=== PATIENT | male | born 1995 | race Hispanic/Latino ===

== ENCOUNTER 2023-08-09 14:09 | Observation (INO) | payer MEDICAID, SELFPAY ==
[2023-08-09] VITALS (26 sets, daily range): BP systolic 119–134; BP diastolic 71–91; PULSE 68–133; RESP 15–31; TEMP 36.7–38.2; O2SAT 97–100
--- NOTE | ~2023-08-09 | CT_ITS ---
EXAMINATION: CT brain wo con DATE: 08/09/2023 17:32 INDICATION: Headache. Fever. TECHNIQUE: Computed tomography (CT) of the head was performed without intravenous contrast. The mA wa s adjusted according to patient size. Iterative reconstruction technique was employed. The dose-lengt h product was 605.33 mGy-cm. COMPARISON: None FINDINGS: There is no intracranial hemorrhage, acute infarction, or abnormal intracranial mass lesion . The ventricles are normal in size. There is mild mucosal thickening in the paranasal sinuses. The m astoid air cells are normal. The orbits are normal. IMPRESSION: 1. Normal brain. Reviewed, dictated and finalized at location E. IMPRESSION: 1. Normal brain.
--- NOTE | ~2023-08-09 | XR_ITS ---
EXAMINATION: XR chest 2V DATE: 08/09/2023 15:21 INDICATION: Fever. TECHNIQUE: Frontal and lateral views of the chest were obtained. COMPARISON: None. FINDINGS: There is no pneumonia, pleural effusion, or pneumothorax. The heart size is normal. IMPRESSION: 1. No acute cardiopulmonary disease. Reviewed, dictated and finalized at location E.
--- NOTE | ~2023-08-09 | CT_ITS ---
EXAMINATION: CT chest abdomen pelvis wo con DATE: 08/10/2023 08:31 INDICATION: Fever of unknown origin. TECHNIQUE: Computed tomography (CT) of the chest, abdomen, and pelvis was performed without intraveno us contrast. Automated exposure control and iterative reconstruction technique were employed. The dos e-length product was 388.57 mGy-cm. COMPARISON: None FINDINGS: CHEST CT: Mild linear discoid atelectasis in the posterior aspect of the bilateral upper and bilateral lower lo bes. Tiny bilateral posterior layering pleural effusions. No pneumonia, pulmonary edema or pneumothor ax. Heart size is normal. Minimal pericardial effusion. Thoracic aorta is normal. No pathologically e nlarged thoracic lymphadenopathy. Bones are unremarkable. ABDOMEN/PELVIS CT: Diffuse hepatic steatosis. Splenomegaly measuring 15.0 cm in craniocaudal length. Gallbladder, pancre as, bilateral adrenal glands and kidneys are normal. Bowels including the appendix are normal. Bladde r is normal. No free intraperitoneal gas or fluid. No pathologically enlarged abdominal or pelvic lym phadenopathy. Minimal lumbar levocurvature. IMPRESSION: 1. Tiny bilateral pleural effusions and minimal pericardial effusion. No other acute cardiopulmonary disease. 2. Diffuse hepatic steatosis and nonspecific mild splenomegaly. No acute intra-abdominal/pelvic proce ss. Reviewed, dictated and finalized at location A. IMPRESSION: 1. Tiny bilateral pleural effusions and minimal pericardial effusion. No other acute cardiopulmonary disease. 2. Diffuse hepatic steatosis and nonspecific mild splenomegaly. No acute intra- abdominal/pelvic process.
--- NOTE | 2023-08-09 14:25 | ECG_ITS ---
Measurements Intervals [place] Rate: 112 P: 37 TN: 157 QRS: 31 QRSD: 94 T: 29 QT: 284 QTc: 388 Interpretive Statements SINUS TACHYCARDIA INCOMPLETE RIGHT BUNDLE BRANCH BLOCK [90+ ms QRS DURATION, TERMINAL R IN V1/V2, 40+ ms S IN I/aVL/V4/V5/V6] ABNORMAL RHYTHM ECG NO PREVIOUS ECG AVAILABLE FOR COMPARISON Electronically Signed On 08-10-2023 14:10:15 CDT by Shelton Recinos M.D.
[2023-08-09 14:52] LABS: Basophils Percent Auto 0.8 % (0.2-1.2); Hematocrit 31.6 % (42.0-52.0); Hemoglobin 10.8 g/dL (14.0-18.0); Immature Platelet Fraction Pct 5.3 % (0.9-11.2); Lymphocytes Absolute Auto 0.98 K/mm3 (0.9-3.2); Mean Corpuscular HGB Conc 34.2 g/dl (32-36); Mean Corpuscular Hemoglobin 29.8 pg (26-34); Mean Corpuscular Volume 87.3 fl (80-100); Mean Platelet Volume 9.9 fl (7.4-10.4); Monocytes Absolute Auto 0.2 K/mm3 (0.1-0.6); Neutrophils Absolute Auto 0.1 K/mm3 (1.3-6.7); Neutrophils Percent Auto 4.2 % (45.5-73.1); Platelet Count Result 379 k/mm3 (150-375); Red Blood Count 3.62 M/mm3 (4.6-6.20); Red Cell Distribution Width 12.9 % (11.5-14.5)
[2023-08-09 15:01] LABS: Alanine Aminotransferase 107 U/L (6-50); Albumin Level 3.8 g/dL (3.5-5.1); Alkaline Phosphatase 188 U/L (38-126); Anion Gap 8 mmol/L (8-16); Aspartate Amino Transferase 49 U/L (17-59); Bilirubin,Total 0.9 mg/dL (0.2-1.3); Blood Urea Nitrogen 17 mg/dL (9-20); Calcium 8.5 mg/dL (8.4-10.2); Carbon Dioxide 25 mmol/L (22-30); Chloride 100 mmol/L (98-107); Estimated CRCL calculation 97 ml/min; Estimated Glomerular Filt Rate > 60; Glucose 141 mg/dL (65-110); Potassium 3.9 mmol/L (3.4-5.0); Sodium 133 mmol/L (137-145)
[2023-08-09 15:06] LABS: White Blood Count 1.2 K/mm3 (4.5-10.0)
[2023-08-09 15:09] LABS: Atypical Lymphocytes Present; Schistocytes None Seen (NORMAL)
[2023-08-09 15:26] LABS: Influenza A QL RT-PCR Negative (Negative); Influenza B QL RT-PCR Negative (Negative); SARS-CoV-2 RNA PCR Negative (Negative)
[2023-08-09] MEDS: ACETAMINOPHEN 500 MG TABLET 1000 MG PO (18:11)
[2023-08-09] MEDS: SODIUM CHLORIDE 0.9% IV 1,000 ML 999 ML IV CONT (18:12)
[2023-08-09] MEDS: Please add drug allergy info to patient profile. 1 EACH XX (18:12)
[2023-08-09] MEDS: CEFEPIME 2 GM/NS 50 ML 2 GM/50 ML BAG IVPB (18:13)
[2023-08-09 18:34] LABS: Lactic Acid Reflex 0.9 mmol/L (0.7-2.0)
[2023-08-09 18:41] LABS: INR 1.1; Partial Thromboplastin Time 40.4 SECONDS (22.3-36.8); Prothrombin Time 14.3 Seconds (11.1-14.7)
--- NOTE | 2023-08-09 19:03 | ED.FEVER ---
HPI - Fever General Chief Complaint: Fever <Ozzie Montgomery MD - Last Filed: 08/09/23 20:01> Stated Complaint: jose/fever x 4 weeks, UC referred <Ozzie Montgomery MD - Last Filed: 08/09/23 20:01> Time Seen by Provider: 08/09/23 16:59 <Ozzie Montgomery MD - Last Filed: 08/09/23 20:01> History of Present Illness HPI Narrative: This is a 28M with no significant past medical history who presents to the emergency department complaining of fever for the past 4 weeks. He denies any recent travel or known sick contacts. He denies cough, vomiting, rash, abdominal pain, dysuria, weakness or numbness. He has had some intermittent headaches without focal weakness or vision changes. He works in a restaurant. <Ozzie Montgomery MD - Last Filed: 08/09/23 20:01> Related Data Home Medications: Home Medications Medication Instructions Recorded Confirmed No Home Medications 08/10/23 08/10/23 <Ozzie Montgomery MD - Last Filed: 08/09/23 20:01> Allergies/Adverse Reactions: Allergies Allergy/AdvReac Type Severity Reaction Status Date / Time No Known Allergies Allergy Verified 08/09/23 18:11 <Ozzie Montgomery MD - Last Filed: 08/09/23 20:01> Review of Systems Review of Systems: CONSTITUTIONAL: Fever Denies chills, or sweats. EYES: Denies visual changes, redness, or discharge. ENT: Denies rhinorrhea, congestion, sore throat, or otalgia. CARDIOVASCULAR: Denies chest pain, palpitations, or edema. RESPIRATORY: Denies cough or dyspnea. GASTROINTESTINAL: Denies abdominal pain, nausea, vomiting, or diarrhea. GENITOURINARY: Denies dysuria or hematuria. SKIN: Denies rash or itching. MUSCULOSKELETAL: Denies back pain, joint pain, or myalgia. NEUROLOGIC: Denies headache, numbness, dizziness, or weakness. PSYCHIATRIC: Denies anxiety or depression. <Ozzie Montgomery MD - Last Filed: 08/09/23 20:01> [facility] Past Medical History Medical History: Medical History Torsion, testicular <Ozzie Montgomery MD - Last Filed: 08/09/23 20:01> Surgical History Surgical History: Surgical History Status post orchiopexy <Ozzie Montgomery MD - Last Filed: 08/09/23 20:01> Family History Family History: Family History (Updated 08/10/23 @ 02:28 by Lizette Calvin RN) Other Unknown family medical history <Ozzie Montgomery MD - Last Filed: 08/09/23 20:01> Social History Social History: Social History Smoking status: Never smoker Alcohol intake: current Drinks per week: 1 Substance use: never Lack of Transportation: No Lack of Food: Never True Current Housing: I Have Housing Concerned About Future Housing: No Difficulty Paying Gas/Electric Bills: YES Difficulty Paying for Meds: YES Currently Unemployed: No Education: High School Diploma/GED Difficulty w/ Childcare or Family Care: No Spiritual care concerns: No <Ozzie Montgomery MD - Last Filed: 08/09/23 20:01> Exam Narrative: GENERAL: Well-developed, well-nourished, in no acute distress HEAD: Normocephalic, atraumatic EYES: PERRLA and EOMI ENT: Nares clear, no rhinorrhea or epistaxis. Mucous membranes moist. Oropharynx without tonsillar hypertrophy or exudate or other lesions. Bilateral TMs intact and not bulging NECK: Supple. No adenopathy or masses. No carotid bruits or JVD. Head impulse test negative CHEST: Clear to auscultation. No respiratory distress. No wheezes, rales or rhonchi. HEART: Regular rate and rhythm. No murmur heard. normal peripheral pulses. ABDOMEN: Soft, nontender, nondistended, normoactive bowel sounds. : Normal male external genitalia, circumcised, no erythema or crepitus EXTREMITIES: Normal range of motion. No edema. SKIN: Warm, dry, no rash. NEURO: No focal deficits. Deisi
[2023-08-09 19:09] LABS: CRP 26.9 mg/dL (<1.0)
--- NOTE | 2023-08-09 19:15 | PC.NURSE ---
Assumed care of pt from MARICARMEN Booker at this time. Pt resting in bed. This RN provided pt w sandwich and chips.
[2023-08-09 19:30] LABS: Appearance Urine Clear (Clear); Bilirubin Urine Negative (Negative); Blood Urine Negative (Negative); Color Urine Yellow (Yellow); Glucose Urine UA Negative (Negative); Ketones Urine Negative (Negative); Leukocyte Esterase Ur Negative LEU/UL (Negative); Nitrate Urine Negative (Negative); Protein Urine 2+ mg/dL (Negative); Specific Grav Ur 1.015 (1.001-1.035); pH Urine 8.5 (5.0-9.0)
[2023-08-09 19:39] LABS: Bacteria Urine None Seen /hpf; Hyaline Casts Urine Present /lpf; Need Manual Microscopic Reviewed; RBC Urine 0-2 /hpf (0-2); Squamous Epithelial Cell Urine None seen /hpf (Few); WBC Urine 0-5 /hpf
[2023-08-09 19:40] LABS: Add Urine Microscopic? YES
[2023-08-09 19:57] LABS: RSV RNA, RT-PCR Negative (Negative)
[2023-08-09 23:41] LABS: HIV 1/2 Ab P24 Ag 40.5
[2023-08-09 23:42] LABS: HIV 1/2 Ab P24 Ag Result Reactive (Negative)
[2023-08-09 23:46] LABS: HIVc Retest 1 40.5; HIVc Retest 2 40.4
[2023-08-10] VITALS (15 sets, daily range): BP systolic 103–152; BP diastolic 68–98; PULSE 52–91; RESP 18–26; TEMP 36.1–36.6; O2SAT 99–100; BMI 22.3
[2023-08-10 00:13] LABS: Monoscreen Negative (Negative); Positive Monotest Control Positive (Positive)
[2023-08-10 00:14] LABS: Negative Monotest Control Negative (Negative)
[2023-08-10] MEDS: Please add drug allergy info to patient profile. 1 EACH XX (00:19)
--- NOTE | 2023-08-10 02:02 | ADMGEN ---
This patient, Chico Ngo, was admitted to Medical Room 246-01. Patient/family oriented to hospital policies and general routines including ID bracelet, bed and alarms, visiting hours, pain management, procedures, bathroom and other care routines, personal items, smoking policy, room service/diet, and visiting hours. Information on how to activate the Rapid Response Team has been discussed. Patient/Family are encouraged to report perceived risks to care and to ask questions if they do not understand what they are told or what they should do.
[2023-08-10] MEDS: CEFEPIME 2 GM/NS 50 ML 2 GM/50 ML BAG IVPB ×2 (08:51→17:42)
--- NOTE | 2023-08-10 11:04 | PM.IMHP ---
H&P: HPI History of Present Illness Date/Time: 08/10/23 11:04 Chief Complaint: This is a 28M with no significant past medical history who presents to the emergency department complaining of fever for the past 4 weeks. He denies any recent travel or known sick contacts. He denies cough, vomiting, rash, abdominal pain, dysuria, weakness or numbness. He has had some intermittent headaches without focal weakness or vision changes. 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 EYES: Denies visual changes, redness, or discharge. ENT: Denies rhinorrhea, congestion, sore throat, or otalgia. CARDIOVASCULAR: Denies chest pain, palpitations, or edema. RESPIRATORY: Denies cough or dyspnea. GASTROINTESTINAL: Denies abdominal pain, nausea, vomiting, or diarrhea. GENITOURINARY: Denies dysuria or hematuria. SKIN: Denies rash or itching. MUSCULOSKELETAL: Denies back pain, joint pain, or myalgia. NEUROLOGIC: Denies headache, numbness, dizziness, or weakness. PSYCHIATRIC: Denies anxiety or depression. [facility] Past Medical History Medical History Torsion, testicular Surgical History Surgical History Status post orchiopexy Family History Family History Other Unknown family medical history Social History Social History Smoking status: Never smoker Alcohol intake: current Drinks per week: 1 Substance use: never Lack of Transportation: No Lack of Food: Never True Current Housing: I Have Housing Concerned About Future Housing: No Difficulty Paying Gas/Electric Bills: YES Difficulty Paying for Meds: YES Currently Unemployed: No Education: High School Diploma/GED Difficulty w/ Childcare or Family Care: No Spiritual care concerns: No Meds Home Medications and Allergies Home Medications Medication Instructions Recorded Confirmed Type No Home Medications 08/10/23 08/10/23 History Allergies Allergy/AdvReac Type Severity Reaction Status Date / Time No Known Allergies Allergy Verified 08/09/23 18:11 Vital Signs Vital Signs - 24 hr 08/09/23 14:23 08/09/23 16:17 08/09/23 16:33 Temperature 98.1 F 100.8 F H Pulse Rate 119 H 120 H 119 H Respiratory Rate 18 20 24 H Blood Pressure 128/72 119/71 134/82 Pulse Oximetry 99 100 100 Oxygen Delivery Room Air 08/09/23 16:47 08/09/23 17:01 08/09/23 17:17 Temperature Pulse Rate 120 H Respiratory Rate 25 H Blood Pressure Pulse Oximetry 100 100 98 Oxygen Delivery 08/09/23 17:34 08/09/23 17:47 08/09/23 18:00 Temperature Pulse Rate 126 H 133 H Respiratory Rate 15 22 H Blood Pressure Pulse Oximetry 98 99 97 Oxygen Delivery 08/09/23 18:16 08/09/23 21:49 08/09/23 19:00 Temperature Pulse Rate 127 H 92 111 H Respiratory Rate 19 23 H 31 H Blood Pressure 132/79 134/84 Pulse Oximetry 100 Oxygen Delivery 08/09/23 19:15 08/09/23 19:46 08/09/23 20:00 Temperature Pulse Rate 105 H 102 H 99 Respiratory Rate 31 H 20 28 H Blood Pressure 127/79 129/78 130/80 Pulse Oximetry 99 100 99 Oxygen Delivery 08/09/23 20:15 08/09/23 20:30 08/09/23 21:00 Temperature Pulse Rate 101 H 103 H 91 Respiratory Rate 29 H 25 H 23 H Blood Pressure 130/91 H 130/87 134/79 Pulse Oximetry 99 99 99 Oxygen Delivery 08/09/23 21:45 08/09/23 22:00 08/09/23 22:15 Temperature Pulse Rate 85 77 69 Respiratory Rate 26 H 26 H 24 H Blood Pressure 132/79 132/78 123/78 Pulse Oximetry 99 99 99 Oxygen Delivery 08/09/23 22:30 08/09/23 23:15 08/09/23 23:30 Temperature Pulse Rate 68 87 78 Respiratory Rate 23 H 16 20 Blood Pressure 131/75 134/82 132/77 Pulse Oximetry 99 100 100 Oxygen Delivery 08/09/23 23:45
[2023-08-11] VITALS (7 sets, daily range): BP systolic 111–113; BP diastolic 50–64; PULSE 58–102; RESP 16–21; TEMP 35.3–36.7; O2SAT 99–100
[2023-08-11] MEDS: CEFEPIME 2 GM/NS 50 ML 2 GM/50 ML BAG IVPB ×2 (00:19→09:14)
[2023-08-11 05:56] LABS: Basophils Percent Auto 0.7 % (0.2-1.2); Hematocrit 33.7 % (42.0-52.0); Hemoglobin 11.1 g/dL (14.0-18.0); Lymphocytes Percent Auto 91.5 % (18.3-44.2); Mean Corpuscular HGB Conc 32.9 g/dl (32-36); Mean Corpuscular Hemoglobin 29.2 pg (26-34); Mean Corpuscular Volume 88.7 fl (80-100); Mean Platelet Volume 10.1 fl (7.4-10.4); Monocytes Absolute Auto 0.1 K/mm3 (0.1-0.6); Monocytes Percent Auto 5.9 % (2.6-8.5); Neutrophils Percent Auto 1.9 % (45.5-73.1); Platelet Count Result 400 k/mm3 (150-375); Red Cell Distribution Width 13.1 % (11.5-14.5)
[2023-08-11 06:11] LABS: Anion Gap 8 mmol/L (8-16); Blood Urea Nitrogen 16 mg/dL (9-20); Calcium 8.9 mg/dL (8.4-10.2); Carbon Dioxide 25 mmol/L (22-30); Chloride 104 mmol/L (98-107); Estimated CRCL calculation 114 ml/min; Estimated Glomerular Filt Rate > 60; Glucose 111 mg/dL (65-110); Potassium 4.4 mmol/L (3.4-5.0); Sodium 137 mmol/L (137-145)
[2023-08-11 06:23] LABS: Large Platelets Present; Platelet Estimate Increased (Adequate); White Blood Count 1.5 K/mm3 (4.5-10.0)
[2023-08-11 06:24] LABS: Atypical Lymphocytes Present; Hypochromasia 1+ (NORMAL); Schistocytes None Seen (NORMAL)
[2023-08-11] MEDS: ACETAMINOPHEN 325 MG TABLET 650 MG PO (11:07)
--- NOTE | 2023-08-11 11:51 | PM.IMPN ---
Progress Note: A&P Assessment and Plan (1) Febrile neutropenia: Code(s): D70.9 - Neutropenia, unspecified; R50.81 - Fever presenting with conditions classified elsewhere Status: Acute (2) HIV (human immunodeficiency virus infection): Code(s): B20 - Human immunodeficiency virus [HIV] disease Status: Acute Assessment and Plan: Await studies will contact ID at [place] and see if transfer is needed Subjective Date/time seen: 08/11/23 11:51 Interval history: no complaints Review of Systems Review of Systems: CONSTITUTIONAL: Fever Denies chills, or sweats. EYES: Denies visual changes, redness, or discharge. ENT: Denies rhinorrhea, congestion, sore throat, or otalgia. CARDIOVASCULAR: Denies chest pain, palpitations, or edema. RESPIRATORY: Denies cough or dyspnea. GASTROINTESTINAL: Denies abdominal pain, nausea, vomiting, or diarrhea. GENITOURINARY: Denies dysuria or hematuria. SKIN: Denies rash or itching. MUSCULOSKELETAL: Denies back pain, joint pain, or myalgia. NEUROLOGIC: Denies headache, numbness, dizziness, or weakness. PSYCHIATRIC: Denies anxiety or depression. Exam Narrative: GENERAL: Well-developed, well-nourished, in no acute distress HEAD: Normocephalic, atraumatic EYES: PERRLA and EOMI ENT: Nares clear, no rhinorrhea or epistaxis. Mucous membranes moist. Oropharynx without tonsillar hypertrophy or exudate or other lesions. Bilateral TMs intact and not bulging NECK: Supple. No adenopathy or masses. No carotid bruits or JVD. Head impulse test negative CHEST: Clear to auscultation. No respiratory distress. No wheezes, rales or rhonchi. HEART: Regular rate and rhythm. No murmur heard. normal peripheral pulses. ABDOMEN: Soft, nontender, nondistended, normoactive bowel sounds. : Normal male external genitalia, circumcised, no erythema or crepitus EXTREMITIES: Normal range of motion. No edema. SKIN: Warm, dry, no rash. NEURO: No focal deficits. Alert and oriented x3. PSYCH: Normal mood and affect. Objective Data Vital Signs Vital Signs: Vital Signs - 24 hr 08/10/23 12:00 08/10/23 14:00 08/10/23 16:00 Temperature 97.7 F Pulse Rate 85 78 59 L Respiratory Rate 18 Blood Pressure 139/77 Pulse Oximetry 100 Oxygen Delivery 08/10/23 20:00 08/10/23 20:00 08/10/23 22:00 Temperature 97.0 F L Pulse Rate 80 59 L 75 Respiratory Rate 18 20 Blood Pressure 152/94 H Pulse Oximetry 100 99 Oxygen Delivery Room Air 08/11/23 00:00 08/11/23 04:00 08/11/23 06:00 Temperature 98.0 F Pulse Rate 69 58 L 83 Respiratory Rate 21 H Blood Pressure 113/64 Pulse Oximetry 100 Oxygen Delivery 08/11/23 09:14 08/11/23 08:00 Temperature Pulse Rate 83 Respiratory Rate Blood Pressure Pulse Oximetry Oxygen Delivery Room Air Intake/Output Intake/Output: Intake & Output 08/08/23 08/09/23 08/10/23 08/11/23 23:59 23:59 23:59 23:59 Intake Total 1050 1060 1010 Balance 1050 1060 1010 Meds/Results Medications: Active Medications Generic Name Dose Route Start Last Admin Trade Name Freq PRN Reason Stop Dose Admin Acetaminophen 650 mg 08/11/23 10:43 08/11/23 11:07 Acetaminophen 325 Mg Tablet PO 650 mg Q4H PRN Administration Headache Cefepime HCl 2 gm in 50 mls @ 100 mls/hr 08/10/23 17:00 08/11/23 09:14 Maxipime 2 Gm/Ns 50 Ml IVPB 100 mls/hr Q8H KADI Administration Radiology Results: ITS Impressions Chest X-Ray 08/09/23 15:22 IMPRESSION: 1. No acute cardiopulmonary disease. Head CT 08/09/23 17:34 IMPRESSION: 1. Normal brain. Chest/Abdomen/Pelvis CT 08/10/23 09:19 IMPRESSION: 1. Tiny bilateral pleural effusions and minimal pericardial effusion. No other acute cardiopulmonary disease. 2. Diffuse hepatic steatosis and nonspecific mild splenomegaly. No acute intra-abdominal/pelvic process. Labs Labs: Laboratory Results - last 24 hr 08/11/23 05:36 WBC 1.5
[2023-08-13 15:33] LABS: Absolute CD4 Count 83 cells/uL (490-1740); Lymphocytes, Absolute 577 cells/uL (850-3900); Percent CD4 Cells 14 % (30-61)
[2023-08-13 16:37] LABS: HIV 1 2 Ag Ab 4th Gen w Rflxs Reactive (Nonreactive); HIV 1 Ab Chg Test Yes; HIV 1 Antibody Positive (Negative); HIV 2 Ab Chg Test Yes; HIV 2 Antibody Negative (Negative)
[2023-08-17 10:20] LABS: Blastomyces Antibody Negative; Candida Antibody Negative; Coccidioides Antibody Negative; Histoplasma Antibody Negative
[2023-08-18 00:47] LABS: HIV Genotype DETECTED
--- NOTE | 2023-09-05 12:01 | P.TS_ITS ---
Transfer Discharge Sum: Prov Provider Date of admission: 08/10/23 00:46 Primary care physician: CULIN[facility] SPECIALIST PHYSICIAN Admitting clinician: Humberto Parry MD Consults: 08/11/23 Consult to Physician Routine Comment: Spoke w/ [id number] 08/11 (, [place]) Consulting Provider: Venkat Saini train caller/MD group to consult: Oncology Reason for consultation: WBC 1.5 today. 1.2 yesterday Has provider been notified: Yes DS: Admitting Diagnosis Discharge Date 08/11/23 Admitting Diagnosis HIV, fever DS: Discharge Diagnosis Discharge Diagnosis (1) Febrile neutropenia: Code(s): D70.9 - Neutropenia, unspecified; R50.81 - Fever presenting with conditions classified elsewhere Status: Acute (2) HIV (human immunodeficiency virus infection): Code(s): B20 - Human immunodeficiency virus [HIV] disease Status: Acute Assessment and Plan: Await studies will contact ID at [place] and see if transfer is needed Transfer Discharge Sum: Med Medications Active and Home Medications: Home Medications No Home Medications 08/10/23 [History Confirmed 08/10/23] Transfer Discharge Sum: Hosp Hospital Course Hospital course: Chico Ngo is a 28 year old male admittede for acute hiv infedtion, transferred to tertiary care center for further evaluation and management. All labs and king pending. Time Spent with Patient Time attestation: Total time spent providing and/or coordinating transfer services: Exam Narrative: GENERAL: Well-developed, well-nourished, in no acute distress HEAD: Normocephalic, atraumatic EYES: PERRLA and EOMI ENT: Nares clear, no rhinorrhea or epistaxis. Mucous membranes moist. Oropharynx without tonsillar hypertrophy or exudate or other lesions. Bilateral TMs intact and not bulging NECK: Supple. No adenopathy or masses. No carotid bruits or JVD. Head impulse test negative CHEST: Clear to auscultation. No respiratory distress. No wheezes, rales or rhonchi. HEART: Regular rate and rhythm. No murmur heard. normal peripheral pulses. ABDOMEN: Soft, nontender, nondistended, normoactive bowel sounds. : Normal male external genitalia, circumcised, no erythema or crepitus EXTREMITIES: Normal range of motion. No edema. SKIN: Warm, dry, no rash. NEURO: No focal deficits. Alert and oriented x3. PSYCH: Normal mood and affect. DS: Data Data Completed and Pending Labs on day of discharge: Preliminary micro results at discharge 08/10/23 15:40 Fungal Culture - Preliminary Blood
== END 2023-08-11 17:45 | disposition short-term general hospital (02) ==
LOC: ANHED 23:36 → ANH2MED 08-10 02:36
PROVIDERS: Preventive Medicine Aerospace Medicine; Admitting Provider Chiropractor; Emergency Provider Emergency Medicine; Visit Provider Chiropractor
DX: D70.9 Neutropenia, unspecified (principal); R50.81 Fever presenting with conditions classified elsewhere; B20 Human immunodeficiency virus [HIV] disease; B95.7 Other staphylococcus as the cause of diseases classified elsewhere; Z11.4 Encounter for screening for human immunodeficiency virus [HIV]; R94.31 Abnormal electrocardiogram [ECG] [EKG]; K76.0 Fatty (change of) liver, not elsewhere classified; R16.1 Splenomegaly, not elsewhere classified; F10.90 Alcohol use, unspecified, uncomplicated
CPT/HCPCS: 36415; 70450; 71046; 71250; 74176; 80048; 80053; 81001; 83605; 85025; 85055; 85610; 85730; 86140; 86308; 86361; 86606; 86612; 86628; 86635; 86698; 86701; 86702; 86703; 87040; 87077; 87081; 87103; 87186; 87389; 87536; 87634; 87636; 87900; 87901; 93005; 96365; 96366; 96367; 96375; 99285; A9270; G0378; G0432; J0692; J1100; J3370; J7030